=== PATIENT | female | born 1955 | race Caucasian/White ===

== ENCOUNTER 2021-06-16 14:35 | Emergency (ER) | payer MEDICARE ==
[~2021-06-16] VITALS: Ht 170.2 cm; Wt 75.0 kg
[~2021-06-16 14:35] MED LIST: A/B OTIC AD; AMOXICILLIN/CL875 MG PO; CIPRODEX1 ML AD; FLEXERIL OR; HYDROCHLOROT12.5 MG OR; PROCTOCARE2.5 % RE; ULTRAM50 M1 OR
[2021-06-16 16:02] VITALS: BP 118/77
== END 2021-06-16 16:10 | disposition home or self-care (01) ==
LOC: ED 14:35
DX: U07.1 COVID-19 (principal)